=== PATIENT | male | born 1965 | race Caucasian/White ===

== ENCOUNTER 2017-12-29 22:23 | Emergency (ER) | payer BC ==
[2017-12-30] MEDS: HYDROCODONE/APAP (5/325) TAB PO (01:04)
== END 2017-12-30 02:54 | disposition home or self-care (01) ==
LOC: FTE 22:23
DX: S99.922A Unspecified injury of left foot, initial encounter (principal); F17.210 Nicotine dependence, cigarettes, uncomplicated; X58.XXXA Exposure to other specified factors, initial encounter; Y92.009 Unspecified place in unspecified non-institutional (private) residence as the place of occurrence of the external cause
CPT/HCPCS: 73610; 73630-LT; 99283-25